=== PATIENT | female | born 1975 ===

== ENCOUNTER 2017-12-23 21:14 | Observation (INO) | payer OTHER ==
[2017-12-23 22:07] LABS: ABS Basophils 0.1 10^3/ul (0-0.2); ABS Eosinophils 0.1 10^3/ul (0-0.6); ABS Lymphocytes 2.6 10^3/ul (1.0-4.8); ABS Monocytes 0.7 10^3/ul (0-0.8); ABS Neutrophils 7.8 10^3/ul (1.5-7.7); ABS Nucleated RBC 0 10^3/ul; Eosinophil % 0.9 % (0-6); Hematocrit 43 % (35-47); Hemoglobin 14.6 g/dl (12.0-16.0); Lymphocyte % 23.3 % (25-47); Mean Corpuscular HGB Conc 34 g/dl (31-36); Mean Corpuscular Hemoglobin 30 pg (27-31); Mean Corpuscular Volume 90 fL (80-97); Mean Platelet Volume 7.9 um3 (7.4-10.4); Nucleated Red Blood Cells % 0.1; Platelet Count 344 10^3/ul (150-450); Red Blood Count 4.81 10^6/ul (4.00-5.40); Red Cell Distribution Width 13 % (10.5-15); White Blood Count 11.3 10^3/ul (3.5-10.8)
[2017-12-23 22:19] LABS: EGFR Non-African American 59.7 (>60)
[2017-12-23] MEDS ORDERED: Morphine INJ* 4 MG/ML 1 ML SYRINGE (NEW SYRINGE VERSION) IV ONE (22:42)
[2017-12-23] MEDS ORDERED: Ondansetron INJ* 2 MG/ML VIAL IV ONE (22:43)
[2017-12-23] MEDS ORDERED: NS 0.9% 1000 ML* 1,000 ML IV ONE (22:44)
[2017-12-23 23:07] LABS: Urine Appearance Cloudy; Urine Blood 2+ (Negative); Urine Color Yellow; Urine Ketones Negative (Negative); Urine Protein Negative (Negative); Urine Red Blood Cell Trace(0-2/hpf) (Absent); Urine Specific Gravity 1.019 (1.010-1.030); Urine Urobilinogen Negative (Negative); Urine White Blood Cell Trace(0-5/hpf) (Absent)
[2017-12-23] MEDS ORDERED: Ketorolac INJ* 30 MG/ML 1 ML VIAL IV PUSH ONE (23:56)
[2017-12-24] MEDS ORDERED: Morphine INJ** 4 MG/ML 1 ML CARPUJECT IV ONE (00:27)
--- NOTE | 2017-12-24 00:27 | ED ---
GI/ HPI - HPI Summary HPI Summary: 41-year-old female presents with right abdominal pain for the past couple hours. She states this started after she ate dinner. She had a streak for dinner. States pain is in her epigastric region. She states that radiates to her back. She denies any chest pain or shortness breath. She denies any fevers. No diarrhea or constipation. No vaginal discharge. No urinary symptoms. She states she took ibuprofen which was not able to keep down. She states never had this pain before. No previous abdominal surgeries. - History of Current Complaint Chief Complaint: EDAbdPain Time Seen by Provider: 12/23/17 22:35 Stated Complaint: ABD AND BACK PAIN Pain Intensity: 9 - Allergy/Home Medications Allergies/Adverse Reactions: Allergies Allergy/AdvReac Type Severity Reaction Status Date / Time No Known Allergies Allergy Verified 09/07/14 09:31 PMH/Surg Hx/FS Hx/Imm Hx Endocrine/Hematology History: Denies: Hx Anticoagulant Therapy Cardiovascular History: Denies: Hx Myocardial Infarction Infectious Disease History: No Infectious Disease History: Denies: Traveled Outside the [place] in Last 30 Days - Family History Known Family History: Positive: Other - gallbladder issues - Social History Alcohol Use: None Substance Use Type: Reports: None Smoking Status (MU): Never Smoked Tobacco Review of Systems Negative: Fever Negative: Chest Pain Negative: Shortness Of Breath Positive: Abdominal Pain, Vomiting, Nausea. Negative: Diarrhea All Other Systems Reviewed And Are Negative: Yes Physical Exam Triage Information Reviewed: Yes Vital Signs On Initial Exam: Initial Vitals Temp Pulse Resp BP Pulse Ox 97.9 F 87 20 149/88 100 12/23/17 21:17 12/23/17 21:17 12/23/17 21:17 12/23/17 21:17 12/23/17 21:17 Vital Signs Reviewed: Yes Appearance: Positive: Well-Appearing Skin: Positive: Warm, Dry Head/Face: Positive: Normal Head/Face Inspection Eyes: Positive: Normal, Conjunctiva Clear ENT: Positive: Pharynx normal Respiratory/Lung Sounds: Positive: Clear to Auscultation, Breath Sounds Present Cardiovascular: Positive: Normal, RRR Abdomen Description: Positive: Soft, Other: - tenderness epigastric. Negative: CVA Tenderness (R), CVA Tenderness (L) Musculoskeletal: Positive: Normal Neurological: Positive: Normal Psychiatric: Positive: Normal Diagnostics - Vital Signs Vital Signs Temp Pulse Resp BP Pulse Ox 12/23/17 23:36 88 153/89 99 12/23/17 23:06 84 150/101 100 12/23/17 23:00 76 100 12/23/17 22:51 16 12/23/17 22:36 85 158/84 100 12/23/17 22:35 83 100 12/23/17 21:17 97.9 F 87 20 149/88 100 - Laboratory Lab Results: Lab Results 12/23/17 12/23/17 12/23/17 Range/Units 21:51 21:51 22:45 WBC 11.3 H (3.5-10.8) 10^3/ul RBC 4.81 (4.00-5.40) 10^6/ul Hgb 14.6 (12.0-16.0) g/dl Hct 43 (35-47) % MCV 90 (80-97) fL MCH 30 (27-31) pg MCHC 34 (31-36) g/dl RDW 13 (10.5-15) % Plt Count 344 (150-450) 10^3/ul MPV 7.9 (7.4-10.4) um3 Neut % (Auto) 69.4 (38-83) % Lymph % (Auto) 23.3 L (25-47) % [place] % (Auto) 5.8 (0-7) % Eos % (Auto) 0.9 (0-6) % Baso % (Auto) 0.6 (0-2) % Absolute Neuts (auto) 7.8 H (1.5-7.7) 10^3/ul Absolute Lymphs (auto) 2.6 (1.0-4.8) 10^3/ul Absolute Monos (auto) 0.7 (0-0.8) 10^3/ul Absolute Eos (auto) 0.1 (0-0.6) 10^3/ul Absolute Basos (auto) 0.1 (0-0.2) 10^3/ul Absolute Nucleated RBC 0 10^3/ul Nucleated RBC % 0.1 Sodium 138 (135-145) mmol/L Potassium 3.8 (3.5-5.0) mmol/L Chloride 106 (101-111) mmol/L Carbon Dioxide 25 (22-32) mmol/L Anion Gap 7 (2-11) mmol/L BUN 10 (6-24) mg/dL Creatinine 1.02 H (0.51-0.95) mg/dL Est GFR ( Amer) 72.3 (>60) Est GFR (Non-Af Amer) 59.7 (>60) BUN/Creatinine Ratio 9.8 (8-20) Glucose 114 H (70-100) mg/dL Calcium 9.4 (8.6-10.3) mg/dL Total Bilirubin 0.50 (0.2-1.0) mg/dL AST 15 (13-39) U/L ALT 14 (7-52) U/L Alkaline Phosphatase 54 (34-104) U/L C-Reactive Protein 8.22 H (<8.01) mg/L Total Protein 7.2 (6.4-8.9) g/dL Albumin 4.2 (3.2-5.2) g/dL Globulin 3.0 (2-4) g/dL Albumin/Globulin Ratio 1.4 (1-3) Lipase 52 (11.0-82.0) U/L Beta HCG, Quant < 0.60 mIU/mL Urine Color Yellow Urine Appearance Cloudy Urine pH 5.0 (5-9) Ur Specific [place] 1.019 (1.010-1.030) Urine Protein Negative (Negative) Urine Ketones Negative (Negative) Urine Blood 2+ A (Negative) Urine Nitrate Negative (Negative) Urine Bilirubin Negative (Negative) Urine Urobilinogen Negative (Negative) Ur Leukocyte Esterase Negative (Negative) Urine WBC (Auto) Trace(0-5/hpf) (Absent) Urine RBC (Auto) Trace(0-2/hpf) (Absent) Ur Squamous Epith Cells Present A (Absent) Urine Bacteria Absent (Absent) Urine Glucose Negative (Negative) Result Diagrams: 12/23/17 21:51 12/23/17 21:51 Lab Statement: Any lab studies that have been ordered have been reviewed, and results considered in the medical decision making process. - Ultrasound No standard instances Ultrasound Interpretation: Positive (See Comments) - IMPRESSION: Cholelithiasis with possible choledocholithiasis. No gallbladder wall thickening but limited visualization of gallbladder fundus. No significant duct dilatation. Ultrasound Interpretation Completed By: Radiologist Re-Evaluation - Re-Evaluation First Eval Re-Evaluation Time: 00:34 Change: Unchanged Comment: pain medication did not help Second Eval Re-Evaluation Time: 01:31 Change: Improved Comment: pain is now decreased after morphine and toradol GIGU Course/Dx - Course Course Of Treatment: 41-year-old female presents with right abdominal pain for the past couple hours. She states this started after she ate dinner. She had a streak for dinner. States pain is in her epigastric region. She states that radiates to her back. She denies any chest pain or shortness breath. She denies any fevers. No diarrhea or constipation. No vaginal discharge. No urinary symptoms. She states she took ibuprofen which was not able to keep down. She states never had this pain before. No previous abdominal surgeries. on exam is in extreme pain distress. Tenderness in the epigastric and right upper quadrant. Labs white blood count normal. Liver function normal. CRP mildly elevated. Ultrasound shows cholelthiasis with possible choledocholithiasis. with significant amount of pain with get CT. patient signed out to dr alarcon pending CT. - Diagnoses Differential Diagnoses - Female: Cholelithiasis, Cholecystitis, Gastritis Provider Diagnoses: Cholelithiasis Discharge - Sign-Out/Discharge Documenting (check all that apply): Sign-Out Patient Signing out patient TO: Denis Alarcon - Discharge Plan Referrals: Keaton Gonzales MD [Primary Care Provider] -
[2017-12-24] MEDS ORDERED: Morphine INJ* 4 MG/ML 1 ML SYRINGE (NEW SYRINGE VERSION) ONE (00:42)
--- NOTE | 2017-12-24 01:13 | RAD ---
EXAM: US Abdomen Limited, Right Upper Quadrant EXAM DATE/TIME: 12/24/2017 12:14 AM CLINICAL HISTORY: 41 years old, female; Pain; Abdominal pain; Epigastric; Additional info: Epigastric pain TECHNIQUE: Real-time ultrasound of the abdomen with image documentation. Examination was focused on the right upper quadrant. COMPARISON: No relevant prior studies available. FINDINGS: Liver: Normal. No masses. Gallbladder: Multiple shadowing gallstones are present in the gallbladder, largest measuring 2.1 cm in the gallbladder neck. No gallbladder wall thickening or pericholecystic fluid identified, but the gallbladder fundus is partially obscured by bowel gas Common bile duct: The common bile duct measures 3.5 mm. An echogenic structure which could represent a small stone is present in the common bile duct on image 56. Pancreas: Pancreatic tail and uncinate process are obscured by bowel gas. Remainder of gland normal in appearance. Right kidney: The right kidney measures 9.0 x 3.9 x 5.1 cm. No shadowing stones or hydronephrosis. IMPRESSION: Cholelithiasis with possible choledocholithiasis. No gallbladder wall thickening but limited visualization of gallbladder fundus. No significant duct dilatation. To contact [facility] with a general question: [facility] - [phone] For direct physician to physician contact: Physician Hotline - [phone] [facility] Facility ID #[id number])
[2017-12-24] MEDS ORDERED: Iodixanol* (CONTRAST) 320 MG/ML 100 ML SDV IV ONE (02:35)
--- NOTE | 2017-12-24 03:29 | RAD ---
EXAM: CT Abdomen and Pelvis With Intravenous Contrast EXAM DATE/TIME: 12/24/2017 2:48 AM CLINICAL HISTORY: 41 years old, female; Pain; Abdominal pain; Epigastric; Additional info: Epigastric pain TECHNIQUE: Axial computed tomography images of the abdomen and pelvis with intravenous contrast. All CT scans at this facility use at least one of these dose optimization techniques: automated exposure control; mA and/or kV adjustment per patient size (includes targeted exams where dose is matched to clinical indication); or iterative reconstruction. Coronal and sagittal reformatted images were created and reviewed. CONTRAST: 100 ml of VISIPAQUE 320 administered intravenously. COMPARISON: GB US GALL BLADDER 12/23/2017 11:52 PM FINDINGS: Lower thorax: No acute findings. ABDOMEN: Liver: A 7 mm peripheral hypodensity is present in the posterior segment of the right hepatic lobe on series 2 image 17, too small to characterize but likely a small cyst or hemangioma. No mass. No intrahepatic biliary dilatation. Gallbladder and bile ducts: The gallbladder wall appears edematous. There is contour abnormality at the fundus of the gallbladder, likely representing a phrygian cap or prominent fold, but some images raise concern for gallbladder perforation. However, there is no significant pericholecystic fat stranding. A peripherally calcified stone is visible near the gallbladder fundus. Pancreas: Unremarkable. No ductal dilation. Spleen: Unremarkable. No splenomegaly. Adrenals: Unremarkable. No mass. Kidneys and ureters: No mass or hydronephrosis. 6 mm cortical hypodensity on left kidney, too small to characterize but likely a tiny cyst. Stomach and bowel: No bowel obstruction. No mucosal thickening. Appendix: No evidence of appendicitis. PELVIS: Bladder: Unremarkable as visualized. Reproductive: Unremarkable as visualized. ABDOMEN and PELVIS: Intraperitoneal space: No free air of significant free fluid. Bones/joints: No acute fracture or dislocation. Soft tissues: Unremarkable. Vasculature: No abdominal aortic aneurysm. Lymph nodes: No enlarged lymph nodes. IMPRESSION: Diffuse gallbladder wall thickening and edema, consistent with acute cholecystitis. Unusual contour near gastric fundus likely represents a phrygian cap or fold. Perforation, however, is not excluded. Findings were discussed with Dr. Martinez at 12/24/2017 3:27 AM EDT. To contact [facility] with a general question: [facility] - [phone] For direct physician to physician contact: Physician Hotline - [phone] [facility] (ad Facility ID #[id number])
[2017-12-24] MEDS ORDERED: Morphine VIAL* 4 MG/ML VIAL (1 ml vial) IV ONE (03:43)
[2017-12-24] MEDS ORDERED: Piperacillin/Tazobac ADVAN(*) 3.375 GM in NS 0.9% 100 ML* 100 ML IVPB ONE (03:44)
[2017-12-24] MEDS ORDERED: Ondansetron INJ* 2 MG/ML VIAL IV PRN (03:47)
[2017-12-24] MEDS ORDERED: Morphine INJ* 4 MG/ML 1 ML SYRINGE (NEW SYRINGE VERSION) IV PRN (03:47)
[2017-12-24] MEDS ORDERED: Acetaminophen TAB* 325 MG PO PRN (03:47)
[2017-12-24] MEDS ORDERED: NS 0.9% 1000 ML* 1,000 ML IV SCH (04:00)
--- NOTE | 2017-12-24 04:53 | ED ---
Re-Evaluation - Re-Evaluation First Eval Re-Evaluation Time: 00:34 Change: Unchanged Comment: pain medication did not help Second Eval Re-Evaluation Time: 01:31 Change: Improved Comment: pain is now decreased after morphine and toradol Third Eval Re-Evaluation Time: 03:52 Change: Improved - I discussed the patient with the surgeon on-call, Dr. Ricardo Caputo, who will call in admitting orders. Course/Dx - Course Course Of Treatment: 41-year-old female presents with right abdominal pain for the past couple hours. She states this started after she ate dinner. She had a streak for dinner. States pain is in her epigastric region. She states that radiates to her back. She denies any chest pain or shortness breath. She denies any fevers. No diarrhea or constipation. No vaginal discharge. No urinary symptoms. She states she took ibuprofen which was not able to keep down. She states never had this pain before. No previous abdominal surgeries. on exam is in extreme pain distress. Tenderness in the epigastric and right upper quadrant. Labs white blood count normal. Liver function normal. CRP mildly elevated. Ultrasound shows cholelthiasis with possible choledocholithiasis. with significant amount of pain with get CT. patient signed out to dr alarcon pending CT. - Diagnoses Provider Diagnoses: Cholelithiasis, Cholecystitis Discharge - Sign-Out/Discharge Documenting (check all that apply): Patient Departure - Discharge Plan Condition: Guarded Disposition: ADMITTED TO [facility] Referrals: Keaton Gonzales MD [Primary Care Provider] - - Billing Disposition and Condition Condition: GUARDED Disposition: Admitted to [facility]
[2017-12-24] MEDS ORDERED: Piperacillin/Tazobac ADVAN(*) 3.375 GM in NS 0.9% 100 ML* 100 ML IVPB SCH (08:00)
[2017-12-24] MEDS ORDERED: Famotidine IV* 10 MG/ML 2 ML (20 mg) IV SLOW PU ONE (13:00)
[2017-12-24] MEDS ORDERED: Dexamethasone IV* 4 MG/ML 1 ML (4 MG) IV SLOW PU ONE (13:00)
--- NOTE | 2017-12-24 13:05 | HP ---
AMENDED REPORT NOW INCLUDES DESIGNATED COSIGNER CC: Dr. Staton, [place], [place] * DATE OF ADMISSION: 12/23/2017. ATTENDING SURGEON: Dr. Ricardo Caputo * (NNAMDI Andre dictating). CHIEF COMPLAINT: Abdominal pain. HISTORY OF PRESENT ILLNESS: This is a generally healthy, 41-year-old female who beginning around 7:00 p.m. last evening noted onset of mid epigastric pain which radiating both to the left and right and through to the back. This is after a meal of steak, potatoes, and beans. She did have nausea and multiple episodes of vomiting; a couple of the later episodes with some blood streaking. She has not vomited since her arrival to the floor last night. She states the pain was at 10/10 level at its peak and this morning is down to 3/10. She denies fever or chills. This episode was preceded by a period of indigestion, but she has not otherwise had any prior episodes of pain like this one. She has not had any lower GI symptoms. Her last bowel movement was yesterday and described as normal. There is a family history of gallstone disease in her brother. She has not had any prior abdominal surgeries. PAST MEDICAL HISTORY: Unremarkable for any chronic or active medical problems, other than seasonal and environmental allergies. PAST SURGICAL HISTORY: None. CURRENT MEDICATIONS: 1. control pill. 2. Zyrtec once daily. 3. Vitamin B12 supplement. DRUG ALLERGIES: None known. FAMILY HISTORY: Negative for anesthesia problems, bleeding, or clotting disorders. Positive for gallbladder disease as noted above. SOCIAL HISTORY: The patient lives with her longtime boyfriend. She works as a CPA. She denies the use of tobacco, alcohol, or recreational drugs. REVIEW OF SYSTEMS: General: No recent constitutional symptoms or acute illnesses other than described in the HPI. HEENT: No problems reported. Cardiovascular: No chest pain, palpitations, or history of heart murmur. Respiratory: No history of asthma, chronic cough, or shortness of breath. GI: As above per HPI. No additions. : No dysuria or hematuria. 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 No problems reported. Endocrine: No history of diabetes. She does have a somewhat enlarged right thyroid lobe which has been previously biopsied and followed. Her thyroid function tests are normal. PHYSICAL EXAMINATION GENERAL: Well-nourished, well-developed, obese female in no acute distress. SKIN: Warm and dry. No suspicious rashes or lesions. VITAL SIGNS: Height 5'4", weight 190 pounds, BMI 32.6. Temperature 97.9, blood pressure 129/63, pulse 81, respirations 16, room air saturation 99 percent. HEENT: Pupils equal and round, reactive. EOM's intact. No conjunctival pallor or scleral icterus. Oropharynx: Mucus membranes slightly dry. Teeth in good repair. No intraoral lesions. NECK: No lymphadenopathy. There is some prominence and nodularity to the right lobe of the thyroid, but no discrete masses. No palpable cervical or supraclavicular lymphadenopathy. LUNGS: Clear to auscultation. No wheezes. HEART: Regular rate and rhythm. No murmur appreciated. BREASTS: Not examined. ABDOMEN: Obese. Bowel sounds present and normal. Soft with mild to moderate tenderness in the right upper quadrant and an equivocal Solares sign. No palpable masses or organomegaly. BACK: No spinous process or CVA tenderness. EXTREMITIES: No edema. GENITALIA: Not done. RECTAL: Not done. NEUROLOGIC: Grossly intact. LABORATORY DATA ON ADMISSION: CBC: White blood cell count 11.3, hemoglobin 14.6. Chemistries: Creatinine mildly elevated at 1.02, CRP elevated at 8.2, liver function test and lipase were all normal. Urinalysis did show 2+ blood. Ultrasound of the right upper quadrant confirms the presence of gallstones, but without gallbladder wall thickening or pericholecystic fluid. There is an echogenic finding in the common bile duct which is possible for common bile duct stone. The common bile duct is normal in size at 3.[address] scan of the abdomen and pelvis does show gallbladder wall edema and thickening, as well as a fold in the fundus of the gallbladder possibly representing a Phrygian cap or perforation of the gallbladder. IMPRESSION: Acute biliary colic secondary to gallstone disease. Based on her clinical appearance, it seems doubtful that she would have a common duct stone, i.e. history of normal colored urine, normal LFT's, and normal sized common bile duct. The patient has improved this morning. PLAN: Will continue to keep NPO with the goal of possibly proceeding towards surgery later today for laparoscopic cholecystectomy. Her findings on exam and plan will be confirmed by the surgeon of record, to be determined. NNAMDI ANDRE [id number]/[facility] #: [id number] MTDD
[2017-12-24] MEDS ORDERED: Famotidine IV* 10 MG/ML 2 ML (20 mg) ONE (13:10)
[2017-12-24] MEDS ORDERED: Dexamethasone IV* 4 MG/ML 1 ML (4 MG) ONE (13:10)
[2017-12-24] MEDS ORDERED: Bupivacaine 0.25% W/EPI* 10 ML SDV ONE (14:07)
[2017-12-24] MEDS ORDERED: DiMENhydriNATE IV* 50 MG/ML VIAL IV PUSH PRN (14:12)
[2017-12-24] MEDS ORDERED: HYDROcodone/ACETAMIN 5-325 MG* 1 TAB PO PRN (14:12)
[2017-12-24] MEDS ORDERED: oxyCODONE/Acetamin 5/325 MG* TAB PO PRN (14:12)
[2017-12-24] MEDS ORDERED: fentaNYL* 50 MCG/ML 2 ML VIAL (100 MCG VIAL) IV PRN (14:12)
[2017-12-24] MEDS ORDERED: Naloxone* 0.4 MG/ML 1 ML VIAL IV PRN (14:12)
[2017-12-24] MEDS ORDERED: Propofol* 10 MG/ML 20 ML BTL IV PUSH ONE (14:24)
[2017-12-24] MEDS ORDERED: Midazolam* 1 MG/ML 2 ML VIAL (2 MG) ONE (14:24)
[2017-12-24] MEDS ORDERED: Lidocaine 2% PF * 5 ML VIAL ONE (14:24)
[2017-12-24] MEDS ORDERED: fentaNYL* 50 MCG/ML 5 ML VIAL (250 MCG VIAL) ONE (14:25)
[2017-12-24] MEDS ORDERED: Rocuronium* 10 MG/ML VIAL ONE (14:33)
[2017-12-24] MEDS ORDERED: Ketorolac INJ* 30 MG/ML 1 ML VIAL ONE (14:44)
[2017-12-24] MEDS ORDERED: EPHEDrine (Pressors)* 50 MG/ML VIAL ONE (14:46)
[2017-12-24] MEDS ORDERED: Metoprolol Tartrate IV* 1 MG/ML 5 ML VIAL ONE (15:01)
[2017-12-24] MEDS ORDERED: Ondansetron INJ* 2 MG/ML VIAL ONE (15:19)
[2017-12-24] MEDS ORDERED: Sugammadex * 500 MG/5 ML VIAL IV PUSH ONE (15:35)
[2017-12-24 17:24] VITALS: BP 143/82
--- NOTE | 2017-12-25 03:26 | OP ---
CC: Dr. Keaton Gonzales... DATE OF OPERATION: 12/24/17 - ROOM #342 DATE OF : 75 SURGEON: Javier Noel MD SALES ACCOUNT COORDINATOR: None. ANESTHESIOLOGIST: Dr. Donohue. ANESTHESIA: General anesthetic, local infiltration. PRE-OP DIAGNOSIS: Cholecystitis. POST-OP DIAGNOSIS: Cholecystitis. OPERATIVE PROCEDURE: Laparoscopic cholecystectomy with ICG cholangiography. DESCRIPTION OF PROCEDURE: The patient was supine on the operative table. After adequate general anesthetic, compression stockings, Kip Hugger warmer, and intravenous antibiotics, the abdomen was prepped with antiseptic, draped in a sterile fashion. Local infiltrative anesthesia was administered. A small incision was created in the right subcostal region and 5 mm Visiport cannula was placed without difficulty. Abdomen was insufflated with carbon dioxide. Additional cannulae 5 mm supraumbilical and right anterior axillary line and 12 mm subxiphoid were placed through a small stab wounds under direct vision. Gallbladder had some edema to it, but not too much. The areolar tissue was taken down over the cystic duct and cystic artery, which were readily identified. The isocyanine green cholangiography was examined and the common duct could be readily identified and had good flow. There was good flow into the duodenum. The cystic duct common duct junction was readily identified and the cystic duct was clipped and divided away from the site. Cystic artery was also clipped and divided. The gallbladder was taken off the liver bed using electrocautery. Gallbladder was removed through the subxiphoid port without difficulty. The operative field was irrigated with warm saline solution. Free fluid was suctioned out. There were no complications. No drains. Pathologic specimen was gallbladder. Sponge and instrument counts were correct. Estimated blood loss was 30 to 50 mL. [id number]/[facility] #: [id number] [facility]
== END 2017-12-24 20:03 | disposition home or self-care (01) ==
LOC: ED 21:14 → SSU 12-24 03:47
PROVIDERS: ADMIT Surgery; ATTEND Surgery
DX: K81.9 Cholecystitis, unspecified (principal); R10.9 Unspecified abdominal pain; R11.10 Vomiting, unspecified
CPT/HCPCS: 36415; 74177; 76705; 80053; 81003; 81015; 83690; 84702; 85025; 86140; 87086; 88304; 96365; 96366; 96375; 99284; G0378; J1100; J1885; J2250; J2270; J2405; J2543; J2704; J3010; J3490; Q9967